=== PATIENT | female | born 1985 | race Caucasian/White ===

== ENCOUNTER 2017-12-21 08:22 | Emergency (ER) | payer OTHER ==
[2017-12-21] MEDS: ACETAMINOPHEN 500 MG TAB PO (08:55)
[2017-12-21 09:29] LABS: ADD UMIC NO; UR ASCORBIC ACID NEGATIVE (NEGATIVE); UR BILIRUBIN (Dip) NEGATIVE (NEGATIVE); UR BLOOD (Dip) NEGATIVE (NEGATIVE); UR CLARITY CLEAR (CLEAR); UR COLOR STRAW (YELLOW); UR GLUCOSE (Dip) NEGATIVE (NEGATIVE); UR KETONES (Dip) NEGATIVE (NEGATIVE); UR LEUKOCYTE ESTERASE (Dip) NEGATIVE Leu/ul (NEGATIVE); UR NITRITE (Dip) NEGATIVE (NEGATIVE); UR SPECIFIC GRAVITY (Dip) 1.014 (1.003-1.030); UR TOTAL PROTEIN (Dip) NEGATIVE (NEGATIVE); UR UROBILINOGEN (Dip) NEGATIVE (NEGATIVE)
[2017-12-21 09:46] LABS: ADD MAN DIFF? NO
[2017-12-21 09:48] LABS: BASOPHILS % 0.6 % (0.0-2.0); EOSINOPHILS # 0.1 10^3/ul (0.0-0.5); EOSINOPHILS % 1.2 % (0.0-7.0); HEMOGLOBIN 10.8 g/dl (12.0-16.0); LYMPHOCYTES # 1.8 10^3/ul (0.8-2.9); LYMPHOCYTES % 26.1 % (15.0-51.0); MEAN CORPUSCULAR HEMOGLOBIN 24.1 pg (29.0-33.0); MEAN CORPUSCULAR HGB CONC 31.8 g/dl (32.0-37.0); MEAN CORPUSCULAR VOLUME 75.7 fl (82.0-101.0); MONOCYTE # 0.5 10^3/ul (0.3-0.9); MONOCYTES % 6.6 % (0.0-11.0); NEUTROPHIL # 4.5 10^3/ul (1.6-7.5); NEUTROPHILS % 65.2 % (39.0-77.0); PLATELET COUNT 302 10^3/UL (140-415); RED BLOOD COUNT 4.49 10^6/ul (4.20-5.40); RED CELL DISTRIBUTION WIDTH 16.3 % (11.5-14.5)
[2017-12-21 09:48] LABS: WHITE BLOOD COUNT 6.9 10^3/ul (4.8-10.8)
[2017-12-21 10:09] LABS: ALANINE AMINOTRANSFERASE 22 IU/L (13-69); ALBUMIN 4.2 g/dl (3.3-4.9); ALBUMIN/GLOBULIN RATIO 1.27; ALKALINE PHOSPHATASE 59 IU/L (42-121); ANION GAP 16 (8-16); ASPARTATE AMINO TRANSFERASE 13 IU/L (15-46); BLOOD UREA NITROGEN 9 mg/dl (7-20); CALCIUM 9.3 mg/dl (8.4-10.2); CARBON DIOXIDE 22 mmol/L (21-31); CHLORIDE 107 mmol/L (97-110); CREATININE 0.71 mg/dl (0.44-1.00); GLUCOSE 82 mg/dl (70-220); LIPASE 152 U/L (23-300); POTASSIUM 4.1 mmol/L (3.5-5.1); SODIUM 141 mmol/L (135-144); TOTAL PROTEIN 7.5 g/dl (6.1-8.1)
[2017-12-21] MEDS: LIDOCAINE/MYLANTA 40 ML BTL PO (10:39)
[2017-12-21] MEDS: IBUPROFEN 800 MG TAB PO (10:39)
[2017-12-21] MEDS: BELLADONNA/PHENOBARBITAL TAB PO ×2 (10:39→10:41)
[2017-12-21] MEDS: KETOROLAC 60 MG INJ IM (10:47)
== END 2017-12-21 10:55 | disposition home or self-care (01) ==
LOC: FTE 08:22
DX: R10.11 Right upper quadrant pain (principal); J45.909 Unspecified asthma, uncomplicated
CPT/HCPCS: 36415; 76705; 80053; 81003; 83690; 84703; 85025; 96372; 99285-25

== ENCOUNTER 2018-02-11 08:28 | Emergency (ER) | payer OTHER ==
[2018-02-11] MEDS: KETOROLAC 60 MG INJ IM (09:14)
[2018-02-11 09:19] LABS: ADD MAN DIFF? NO
[2018-02-11 09:31] LABS: BASOPHILS % 0.5 % (0.0-2.0); EOSINOPHILS % 0.6 % (0.0-7.0); HEMATOCRIT 34.1 % (37.0-47.0); HEMOGLOBIN 10.7 g/dl (12.0-16.0); LYMPHOCYTES # 1.6 10^3/ul (0.8-2.9); MEAN CORPUSCULAR HEMOGLOBIN 23.8 pg (29.0-33.0); MEAN CORPUSCULAR HGB CONC 31.4 g/dl (32.0-37.0); MEAN CORPUSCULAR VOLUME 75.8 fl (82.0-101.0); MONOCYTE # 0.4 10^3/ul (0.3-0.9); MONOCYTES % 6.8 % (0.0-11.0); NEUTROPHIL # 4.3 10^3/ul (1.6-7.5); NEUTROPHILS % 66.8 % (39.0-77.0); PLATELET COUNT 281 10^3/UL (140-415); RED CELL DISTRIBUTION WIDTH 14.6 % (11.5-14.5)
[2018-02-11 09:31] LABS: WHITE BLOOD COUNT 6.4 10^3/ul (4.8-10.8)
[2018-02-11 09:36] LABS: ADD UMIC NO; UR ASCORBIC ACID NEGATIVE (NEGATIVE); UR BILIRUBIN (Dip) NEGATIVE (NEGATIVE); UR BLOOD (Dip) NEGATIVE (NEGATIVE); UR CLARITY CLEAR (CLEAR); UR COLOR STRAW (YELLOW); UR GLUCOSE (Dip) NEGATIVE (NEGATIVE); UR KETONES (Dip) NEGATIVE (NEGATIVE); UR LEUKOCYTE ESTERASE (Dip) NEGATIVE Leu/ul (NEGATIVE); UR NITRITE (Dip) NEGATIVE (NEGATIVE); UR SPECIFIC GRAVITY (Dip) 1.014 (1.003-1.030); UR TOTAL PROTEIN (Dip) NEGATIVE (NEGATIVE); UR UROBILINOGEN (Dip) NEGATIVE (NEGATIVE)
[2018-02-11 09:56] LABS: ALANINE AMINOTRANSFERASE 15 IU/L (13-69); ALBUMIN 4.2 g/dl (3.3-4.9); ALKALINE PHOSPHATASE 70 IU/L (42-121); ANION GAP 13 (8-16); ASPARTATE AMINO TRANSFERASE 12 IU/L (15-46); BILIRUBIN,INDIRECT 0.1 mg/dl (0-1.1); BILIRUBIN,TOTAL 0.1 mg/dl (0.2-1.3); BLOOD UREA NITROGEN 9 mg/dl (7-20); CARBON DIOXIDE 27 mmol/L (21-31); CHLORIDE 105 mmol/L (97-110); CREATININE 0.63 mg/dl (0.44-1.00); GLUCOSE 89 mg/dl (70-220); SODIUM 141 mmol/L (135-144); TOTAL PROTEIN 7.7 g/dl (6.1-8.1)
[2018-02-11 10:06] LABS: TROPONIN-I < 0.012 ng/ml (0.00-0.12)
== END 2018-02-11 10:49 | disposition home or self-care (01) ==
LOC: FTE 08:28
DX: R07.9 Chest pain, unspecified (principal); J45.909 Unspecified asthma, uncomplicated
CPT/HCPCS: 36415; 71045; 80053; 81003; 81025; 84484; 84703; 85025; 93005; 96372; 99285-25

== ENCOUNTER 2018-03-15 16:02 | Emergency (ER) | payer OTHER | END 2018-03-15 16:46 | disposition home or self-care (01) | LOC: E/R 16:02 | DX: J02.9 Acute pharyngitis, unspecified (principal); J45.909 Unspecified asthma, uncomplicated | CPT/HCPCS: 99283; Z7502 ==

== ENCOUNTER 2018-05-02 19:59 | Emergency (ER) | payer OTHER ==
[2018-05-02] MEDS: METHYLPREDNISOLONE 125 MG INJ IV (20:33)
[2018-05-02] MEDS: SOD CHLORIDE 0.9% 1,000 ML IV (20:33)
[2018-05-02] MEDS: FAMOTIDINE 20 MG INJ IV (20:33)
[2018-05-02] MEDS: DIPHENHYDRAMINE 50 MG INJ IM (21:36)
== END 2018-05-02 22:30 | disposition home or self-care (01) ==
LOC: FTE 19:59
DX: L50.9 Urticaria, unspecified (principal); R07.0 Pain in throat; J45.901 Unspecified asthma with (acute) exacerbation; Z91.010 Allergy to peanuts; Z91.040 Latex allergy status
CPT/HCPCS: 96361; 96372; 96374; 96375; 99284-25

== ENCOUNTER 2018-07-12 07:30 | Emergency (ER) | payer OTHER ==
[2018-07-12] MEDS: METHYLPREDNISOLONE 125 MG INJ IV (07:43)
[2018-07-12] MEDS: FAMOTIDINE 20 MG INJ IV (07:43)
[2018-07-12] MEDS: EPINEPHrine 1 MG INJ SC (07:43)
[2018-07-12] MEDS: DIPHENHYDRAMINE 50 MG INJ IV (07:44)
[2018-07-12] MEDS: LEVALBUTEROL (NEB) 1.25 MG/0.5 ML AMP HHN (07:51)
== END 2018-07-12 08:22 | disposition home or self-care (01) ==
LOC: FTE 07:30
DX: L29.9 Pruritus, unspecified (principal); J45.901 Unspecified asthma with (acute) exacerbation; Z91.010 Allergy to peanuts; Z91.040 Latex allergy status
CPT/HCPCS: 94664; 96372; 96374; 96375; 99284-25

== ENCOUNTER 2018-07-12 15:25 | Emergency (ER) | payer OTHER ==
[2018-07-12] MEDS ORDERED: EPINEPHrine 1 MG INJ SC (16:59)
[2018-07-12] MEDS: FAMOTIDINE 20 MG INJ IV (17:09)
[2018-07-12] MEDS: EPINEPHrine 1 MG INJ SC (17:09)
[2018-07-12] MEDS: DIPHENHYDRAMINE 50 MG INJ IV (17:09)
[2018-07-12] MEDS: METHYLPREDNISOLONE 125 MG INJ IV (17:09)
[2018-07-12] MEDS: ALBUTEROL 0.083% (NEB) 2.5 MG/3 ML AMP INH (17:10)
[2018-07-12] MEDS: SOD CHLORIDE 0.9% 1,000 ML IV (17:12)
== END 2018-07-12 19:59 | disposition home or self-care (01) ==
LOC: FTE 15:25
DX: R21 Rash and other nonspecific skin eruption (principal); J45.909 Unspecified asthma, uncomplicated; Z91.010 Allergy to peanuts; Z91.040 Latex allergy status
CPT/HCPCS: 94664; 96372; 96374; 96375; 99284-25

== ENCOUNTER 2018-07-12 22:53 | Inpatient (IN) | payer OTHER ==
[2018-07-12] MEDS ORDERED: EPINEPHrine 1 MG INJ (23:47)
[2018-07-12] MEDS: FAMOTIDINE 20 MG INJ IV (23:50)
[2018-07-12] MEDS: DIPHENHYDRAMINE 50 MG INJ IV (23:50)
[2018-07-12] MEDS: METHYLPREDNISOLONE 125 MG INJ IV (23:51)
[2018-07-13 00:02] LABS: ABNORMAL IP MESSAGE 1; ADD MAN DIFF? NO; BASOPHILS % 0.1 % (0.0-2.0); HEMATOCRIT 31.7 % (37.0-47.0); HEMOGLOBIN 9.8 g/dl (12.0-16.0); LYMPHOCYTES # 0.5 10^3/ul (0.8-2.9); LYMPHOCYTES % 4.9 % (15.0-51.0); MEAN CORPUSCULAR HEMOGLOBIN 23.3 pg (29.0-33.0); MEAN CORPUSCULAR HGB CONC 30.9 g/dl (32.0-37.0); MEAN CORPUSCULAR VOLUME 75.5 fl (82.0-101.0); MEAN PLATELET VOLUME 10.2 fl (7.4-10.4); MONOCYTE # 0.1 10^3/ul (0.3-0.9); MONOCYTES % 0.9 % (0.0-11.0); NEUTROPHIL # 10.2 10^3/ul (1.6-7.5); NEUTROPHILS % 93.6 % (39.0-77.0); PLATELET COUNT 320 10^3/UL (140-415)
[2018-07-13 00:02] LABS: WHITE BLOOD COUNT 10.9 10^3/ul (4.8-10.8)
[2018-07-13 00:08] LABS: POSITIVE DIFF @See below
[2018-07-13] MEDS: EPINEPHRINE IVPB (00:08)
[2018-07-13] MEDS: DEXTROSE 5% IVPB (00:08)
[2018-07-13] MEDS ORDERED: ONDANSETRON 4 MG INJ (00:12)
[2018-07-13] MEDS: ONDANSETRON 4 MG INJ IV (00:13)
[2018-07-13 00:22] LABS: ALANINE AMINOTRANSFERASE 14 IU/L (13-69); ALBUMIN 3.6 g/dl (3.3-4.9); ALBUMIN/GLOBULIN RATIO 1.02; ALKALINE PHOSPHATASE 56 IU/L (42-121); ANION GAP 12 (8-16); ASPARTATE AMINO TRANSFERASE 16 IU/L (15-46); BILIRUBIN,INDIRECT 0.1 mg/dl (0-1.1); BILIRUBIN,TOTAL 0.1 mg/dl (0.2-1.3); BLOOD UREA NITROGEN 7 mg/dl (7-20); CALCIUM 9.4 mg/dl (8.4-10.2); CARBON DIOXIDE 20 mmol/L (21-31); CHLORIDE 112 mmol/L (97-110); CREATININE 0.49 mg/dl (0.44-1.00); GLUCOSE 205 mg/dl (70-220); POTASSIUM 4.2 mmol/L (3.5-5.1); SODIUM 140 mmol/L (135-144); TOTAL PROTEIN 7.1 g/dl (6.1-8.1)
[2018-07-13 00:23] LABS: INR 0.99; PARTIAL THROMBOPLASTIN TIME 21.7 Sec (23.0-35.0); PROTIME 13.2 Sec (11.9-14.9)
[2018-07-13] MEDS ORDERED: ACETAMINOPHEN 325 MG TAB PO (04:00)
[2018-07-13 06:01] LABS: ADD MAN DIFF? NO
[2018-07-13] MEDS: METHYLPREDNISOLONE 40 MG INJ IV ×4 (06:01→22:21)
[2018-07-13] MEDS: LORATADINE 10 MG TAB PO (06:04)
[2018-07-13 06:10] LABS: ABNORMAL IP MESSAGE 1; BASOPHILS % 0.1 % (0.0-2.0); HEMATOCRIT 30.9 % (37.0-47.0); HEMOGLOBIN 9.5 g/dl (12.0-16.0); LYMPHOCYTES # 0.9 10^3/ul (0.8-2.9); LYMPHOCYTES % 4.1 % (15.0-51.0); MEAN CORPUSCULAR HEMOGLOBIN 23.8 pg (29.0-33.0); MEAN CORPUSCULAR HGB CONC 30.7 g/dl (32.0-37.0); MEAN CORPUSCULAR VOLUME 77.4 fl (82.0-101.0); MEAN PLATELET VOLUME 10.1 fl (7.4-10.4); MONOCYTE # 0.3 10^3/ul (0.3-0.9); MONOCYTES % 1.3 % (0.0-11.0); NEUTROPHIL # 21.4 10^3/ul (1.6-7.5); NEUTROPHILS % 93.6 % (39.0-77.0); PLATELET COUNT 312 10^3/UL (140-415); RED BLOOD COUNT 3.99 10^6/ul (4.20-5.40); RED CELL DISTRIBUTION WIDTH 15.3 % (11.5-14.5)
[2018-07-13 06:10] LABS: WHITE BLOOD COUNT 22.9 10^3/ul (4.8-10.8)
[2018-07-13 06:15] LABS: POSITIVE DIFF @See below
[2018-07-13] MEDS: DIPHENHYDRAMINE 50 MG INJ IV ×4 (06:42→23:58)
[2018-07-13 07:15] LABS: ANION GAP 12 (8-16); BLOOD UREA NITROGEN 9 mg/dl (7-20); CALCIUM 8.5 mg/dl (8.4-10.2); CARBON DIOXIDE 20 mmol/L (21-31); CHLORIDE 114 mmol/L (97-110); CREATININE 0.47 mg/dl (0.44-1.00); GLUCOSE 180 mg/dl (70-220); POTASSIUM 4.2 mmol/L (3.5-5.1); SODIUM 142 mmol/L (135-144)
[2018-07-13] MEDS: ENOXAPARIN 40 MG/0.4 ML SYG SC (08:52)
[2018-07-13] MEDS ORDERED: LORATADINE 10 MG TAB PO (09:00)
[2018-07-13] MEDS: ALBUTEROL/IPRATROPIUM (NEB) 3 ML AMP HHN ×3 (13:52→20:23)
[2018-07-13 15:14] LABS: RHEUMATOID FACTOR NEGATIVE (NEGATIVE)
[2018-07-13] MEDS ORDERED: DIPHENHYDRAMINE 50 MG INJ (23:51)
[2018-07-14] MEDS ORDERED: METHYLPREDNISOLONE 40 MG INJ IV
[2018-07-14] MEDS: METHYLPREDNISOLONE 125 MG INJ IV ×4 (01:09→18:11)
[2018-07-14] MEDS: FAMOTIDINE 20 MG INJ IV ×3 (01:10→21:00)
[2018-07-14 08:09] LABS: ADD MAN DIFF? NO
[2018-07-14] MEDS: ALBUTEROL/IPRATROPIUM (NEB) 3 ML AMP HHN ×3 (08:23→19:48)
[2018-07-14 08:27] LABS: WHITE BLOOD COUNT 17.8 10^3/ul (4.8-10.8)
[2018-07-14 08:27] LABS: BASOPHILS % 0.1 % (0.0-2.0); HEMATOCRIT 30.6 % (37.0-47.0); HEMOGLOBIN 9.5 g/dl (12.0-16.0); LYMPHOCYTES % 5.6 % (15.0-51.0); MEAN CORPUSCULAR HEMOGLOBIN 23.8 pg (29.0-33.0); MEAN CORPUSCULAR VOLUME 76.7 fl (82.0-101.0); MEAN PLATELET VOLUME 10.8 fl (7.4-10.4); MONOCYTE # 0.2 10^3/ul (0.3-0.9); MONOCYTES % 1.2 % (0.0-11.0); NEUTROPHIL # 16.5 10^3/ul (1.6-7.5); NEUTROPHILS % 92.4 % (39.0-77.0); PLATELET COUNT 305 10^3/UL (140-415); RED BLOOD COUNT 3.99 10^6/ul (4.20-5.40); RED CELL DISTRIBUTION WIDTH 15.5 % (11.5-14.5)
[2018-07-14 08:36] LABS: ANION GAP 11 (8-16); BLOOD UREA NITROGEN 11 mg/dl (7-20); CARBON DIOXIDE 24 mmol/L (21-31); CHLORIDE 109 mmol/L (97-110); CREATININE 0.45 mg/dl (0.44-1.00); GLUCOSE 176 mg/dl (70-220); POTASSIUM 4.1 mmol/L (3.5-5.1); SODIUM 140 mmol/L (135-144)
[2018-07-14] MEDS ORDERED: FAMOTIDINE 20 MG INJ IV (09:00)
[2018-07-14] MEDS: LORATADINE 10 MG TAB PO (09:24)
[2018-07-14] MEDS: ENOXAPARIN 40 MG/0.4 ML SYG SC (09:36)
[2018-07-14] MEDS: DIPHENHYDRAMINE 50 MG INJ IV ×3 (10:48→22:26)
[2018-07-14] MEDS: ALBUTEROL HFA 8 GM INHALER INH ×2 (12:18→18:02)
[2018-07-15] MEDS: DIPHENHYDRAMINE 50 MG INJ IV ×6 (04:15→19:27)
[2018-07-15] MEDS: METHYLPREDNISOLONE 125 MG INJ IV ×4 (06:20→17:54)
[2018-07-15] MEDS: ALBUTEROL/IPRATROPIUM (NEB) 3 ML AMP HHN ×4 (07:38→20:00)
[2018-07-15] MEDS: FAMOTIDINE 20 MG INJ IV ×2 (08:22→20:10)
[2018-07-15] MEDS: LORATADINE 10 MG TAB PO (08:22)
[2018-07-15] MEDS: ENOXAPARIN 40 MG/0.4 ML SYG SC (09:53)
[2018-07-15] MEDS: LORAZEPAM 0.5 MG TAB PO (15:55)
[2018-07-15 19:52] LABS: ANA SCREEN POSITIVE (NEGATIVE); COMPLEMENT, TOTAL (CH50) 44 U/mL (31-60)
[2018-07-16] MEDS: DIPHENHYDRAMINE 50 MG INJ IV ×6 (00:05→21:33)
[2018-07-16] MEDS: METHYLPREDNISOLONE 125 MG INJ IV ×4 (05:24→21:33)
[2018-07-16 07:46] LABS: IMMUNOGLOBULIN E 11 kU/L (<OR=114)
[2018-07-16] MEDS: ALBUTEROL/IPRATROPIUM (NEB) 3 ML AMP HHN ×3 (08:47→19:48)
[2018-07-16] MEDS: FAMOTIDINE 20 MG INJ IV ×2 (09:20→21:33)
[2018-07-16] MEDS: LORATADINE 10 MG TAB PO (09:20)
[2018-07-16] MEDS: ENOXAPARIN 40 MG/0.4 ML SYG SC (09:39)
[2018-07-16 14:36] LABS: ANA PATTERN HOMOGENEOUS
[2018-07-16 20:25] LABS: COMPLEMENT C3 122 mg/dl (88-165); COMPLEMENT C4 27 mg/dl (14-44)
[2018-07-17] MEDS: DIPHENHYDRAMINE 50 MG INJ IV ×6 (01:45→23:34)
[2018-07-17] MEDS: METHYLPREDNISOLONE 125 MG INJ IV ×3 (05:41→21:14)
[2018-07-17] MEDS: FAMOTIDINE 20 MG INJ IV ×2 (08:15→21:15)
[2018-07-17] MEDS: LORATADINE 10 MG TAB PO (08:15)
[2018-07-17] MEDS: ALBUTEROL/IPRATROPIUM (NEB) 3 ML AMP HHN ×4 (08:22→20:00)
[2018-07-17] MEDS: ENOXAPARIN 40 MG/0.4 ML SYG SC (10:30)
[2018-07-17] MEDS: DOCUSATE SODIUM 100 MG CAP PO ×2 (17:56→21:16)
[2018-07-18] MEDS: DIPHENHYDRAMINE 50 MG INJ IV ×5 (05:37→22:44)
[2018-07-18 05:39] LABS: ADD MAN DIFF? NO
[2018-07-18] MEDS: METHYLPREDNISOLONE 125 MG INJ IV ×3 (05:39→21:44)
[2018-07-18 05:44] LABS: WHITE BLOOD COUNT 15.5 10^3/ul (4.8-10.8)
[2018-07-18 05:44] LABS: BASOPHILS % 0.2 % (0.0-2.0); HEMATOCRIT 34.3 % (37.0-47.0); HEMOGLOBIN 10.8 g/dl (12.0-16.0); LYMPHOCYTES # 1.5 10^3/ul (0.8-2.9); LYMPHOCYTES % 9.9 % (15.0-51.0); MEAN CORPUSCULAR HEMOGLOBIN 23.5 pg (29.0-33.0); MEAN CORPUSCULAR HGB CONC 31.5 g/dl (32.0-37.0); MEAN CORPUSCULAR VOLUME 74.6 fl (82.0-101.0); MEAN PLATELET VOLUME 10.3 fl (7.4-10.4); MONOCYTE # 0.7 10^3/ul (0.3-0.9); MONOCYTES % 4.8 % (0.0-11.0); NEUTROPHIL # 12.9 10^3/ul (1.6-7.5); PLATELET COUNT 325 10^3/UL (140-415)
[2018-07-18 06:33] LABS: ANION GAP 10 (8-16); BLOOD UREA NITROGEN 15 mg/dl (7-20); CALCIUM 8.4 mg/dl (8.4-10.2); CARBON DIOXIDE 27 mmol/L (21-31); CHLORIDE 106 mmol/L (97-110); CREATININE 0.45 mg/dl (0.44-1.00); GLUCOSE 140 mg/dl (70-220); SODIUM 139 mmol/L (135-144)
[2018-07-18] MEDS: ALBUTEROL/IPRATROPIUM (NEB) 3 ML AMP HHN ×3 (08:00→19:43)
[2018-07-18] MEDS: FAMOTIDINE 20 MG INJ IV ×2 (08:33→21:44)
[2018-07-18] MEDS: LORATADINE 10 MG TAB PO (08:33)
[2018-07-18] MEDS: DOCUSATE SODIUM 100 MG CAP PO ×2 (08:33→21:44)
[2018-07-18] MEDS: ENOXAPARIN 40 MG/0.4 ML SYG SC (08:34)
[2018-07-19] MEDS: DIPHENHYDRAMINE 50 MG INJ IV ×3 (04:58→14:38)
[2018-07-19] MEDS: METHYLPREDNISOLONE 125 MG INJ IV ×2 (06:34→14:19)
[2018-07-19 06:54] LABS: ADD MAN DIFF? NO
[2018-07-19 07:04] LABS: WHITE BLOOD COUNT 16.7 10^3/ul (4.8-10.8)
[2018-07-19 07:04] LABS: BASOPHILS % 0.2 % (0.0-2.0); HEMATOCRIT 35.5 % (37.0-47.0); HEMOGLOBIN 11.1 g/dl (12.0-16.0); LYMPHOCYTES # 1.8 10^3/ul (0.8-2.9); LYMPHOCYTES % 10.7 % (15.0-51.0); MEAN CORPUSCULAR HEMOGLOBIN 23.4 pg (29.0-33.0); MEAN CORPUSCULAR HGB CONC 31.3 g/dl (32.0-37.0); MEAN CORPUSCULAR VOLUME 74.7 fl (82.0-101.0); MEAN PLATELET VOLUME 10.4 fl (7.4-10.4); MONOCYTE # 0.7 10^3/ul (0.3-0.9); MONOCYTES % 4.1 % (0.0-11.0); NEUTROPHIL # 13.6 10^3/ul (1.6-7.5); NEUTROPHILS % 81.6 % (39.0-77.0); PLATELET COUNT 324 10^3/UL (140-415); RED BLOOD COUNT 4.75 10^6/ul (4.20-5.40); RED CELL DISTRIBUTION WIDTH 14.8 % (11.5-14.5)
[2018-07-19 07:35] LABS: ANION GAP 9 (8-16); BLOOD UREA NITROGEN 15 mg/dl (7-20); CALCIUM 8.2 mg/dl (8.4-10.2); CARBON DIOXIDE 28 mmol/L (21-31); CHLORIDE 105 mmol/L (97-110); CREATININE 0.45 mg/dl (0.44-1.00); GLUCOSE 121 mg/dl (70-220); POTASSIUM 4.1 mmol/L (3.5-5.1); SODIUM 138 mmol/L (135-144)
[2018-07-19] MEDS: ALBUTEROL/IPRATROPIUM (NEB) 3 ML AMP HHN ×2 (07:53→16:05)
[2018-07-19] MEDS: LORATADINE 10 MG TAB PO (09:20)
[2018-07-19] MEDS: DOCUSATE SODIUM 100 MG CAP PO (09:20)
[2018-07-19] MEDS: FAMOTIDINE 20 MG INJ IV (09:24)
[2018-07-19] MEDS: ENOXAPARIN 40 MG/0.4 ML SYG SC (09:44)
== END 2018-07-19 17:30 | disposition still patient (30) | DRG 916 ==
LOC: E/R 22:53 → 2NE 07-14 22:32 → TEL 07-13 01:00
DX: T78.40XA Allergy, unspecified, initial encounter (principal); L53.8 Other specified erythematous conditions; X58.XXXA Exposure to other specified factors, initial encounter; J45.909 Unspecified asthma, uncomplicated
CPT/HCPCS: 71045; 80048; 80053; 82785; 84703; 85025; 85610; 85730; 86038; 86160; 86162; 86430; 94640; 94664; 96374; 96375; 99285-25

== ENCOUNTER 2018-08-21 19:04 | Emergency (ER) | payer OTHER ==
[2018-08-21 20:20] LABS: URINE BLOOD (Dip) POC Negative (NEGATIVE); URINE GLUCOSE (Dip) POC Negative (NEGATIVE); URINE KETONES (Dip) POC Negative (NEGATIVE); URINE LEUKOCYTE EST (Dip) POC Negative (NEGATIVE); URINE NITRITE (Dip) POC Negative (NEGATIVE); URINE TOTAL PROTEIN POC Negative (NEGATIVE)
[2018-08-21 20:20] LABS: URINE PH (Dip) POC 6.5 (5.0-8.5)
[2018-08-21] MEDS: FAMOTIDINE 20 MG INJ IV (20:22)
[2018-08-21] MEDS: ONDANSETRON 4 MG INJ IV (20:22)
[2018-08-21] MEDS: morphine 4 MG/ML VIAL IV (20:22)
[2018-08-21] MEDS: SOD CHLORIDE 0.9% 1,000 ML IV (20:23)
[2018-08-21 20:33] LABS: ADD MAN DIFF? NO
[2018-08-21 20:35] LABS: BASOPHIL # 0.1 10^3/ul (0.0-0.1); BASOPHILS % 0.6 % (0.0-2.0); EOSINOPHILS % 0.5 % (0.0-7.0); HEMATOCRIT 34.4 % (37.0-47.0); HEMOGLOBIN 11.1 g/dl (12.0-16.0); LYMPHOCYTES # 2.1 10^3/ul (0.8-2.9); LYMPHOCYTES % 26.3 % (15.0-51.0); MEAN CORPUSCULAR HEMOGLOBIN 24.2 pg (29.0-33.0); MEAN CORPUSCULAR HGB CONC 32.3 g/dl (32.0-37.0); MEAN CORPUSCULAR VOLUME 75.1 fl (82.0-101.0); MEAN PLATELET VOLUME 9.9 fl (7.4-10.4); MONOCYTE # 0.8 10^3/ul (0.3-0.9); MONOCYTES % 10.5 % (0.0-11.0); NEUTROPHIL # 4.9 10^3/ul (1.6-7.5); NEUTROPHILS % 61.6 % (39.0-77.0); PLATELET COUNT 290 10^3/UL (140-415); RED BLOOD COUNT 4.58 10^6/ul (4.20-5.40); RED CELL DISTRIBUTION WIDTH 15.9 % (11.5-14.5)
[2018-08-21 20:45] LABS: ADD UMIC NO; UR ASCORBIC ACID 40 mg/dL (NEGATIVE); UR BILIRUBIN (Dip) NEGATIVE (NEGATIVE); UR BLOOD (Dip) NEGATIVE (NEGATIVE); UR CLARITY SLIGHTLY CLOUDY (CLEAR); UR COLOR YELLOW (YELLOW); UR GLUCOSE (Dip) NEGATIVE (NEGATIVE); UR KETONES (Dip) NEGATIVE (NEGATIVE); UR LEUKOCYTE ESTERASE (Dip) NEGATIVE Leu/ul (NEGATIVE); UR MUCUS FEW /HPF (NONE SEEN); UR NITRITE (Dip) NEGATIVE (NEGATIVE); UR RBC 1 /HPF (0-5); UR SPECIFIC GRAVITY (Dip) 1.016 (1.003-1.030); UR SQUAMOUS EPITHELIAL CELL FEW /HPF (FEW); UR TOTAL PROTEIN (Dip) NEGATIVE (NEGATIVE); UR UROBILINOGEN (Dip) NEGATIVE (NEGATIVE); UR WBC 1 /HPF (0-5)
[2018-08-21 20:52] LABS: ALANINE AMINOTRANSFERASE 21 IU/L (13-69); ALBUMIN 4.4 g/dl (3.3-4.9); ALBUMIN/GLOBULIN RATIO 1.69; ALKALINE PHOSPHATASE 81 IU/L (42-121); ANION GAP 11 (5-13); ASPARTATE AMINO TRANSFERASE 16 IU/L (15-46); BLOOD UREA NITROGEN 13 mg/dl (7-20); CALCIUM 9.7 mg/dl (8.4-10.2); CARBON DIOXIDE 24 mmol/L (21-31); CHLORIDE 106 mmol/L (97-110); CREATININE 0.85 mg/dl (0.44-1.00); Estimated GFR > 60 mL/min (>60); GLUCOSE 91 mg/dl (70-220); LIPASE 273 U/L (23-300); POTASSIUM 4.4 mmol/L (3.5-5.1); SODIUM 141 mmol/L (135-144)
[2018-08-21] MEDS: KETOROLAC 30 MG INJ IV (21:21)
[2018-08-21] MEDS: DIPHENHYDRAMINE 25 MG CAP PO (21:50)
[2018-08-21] MEDS: METOCLOPRAMIDE 10 MG INJ IV (21:55)
== END 2018-08-21 23:06 | disposition home or self-care (01) ==
LOC: FTE 19:04
DX: R10.11 Right upper quadrant pain (principal); J45.909 Unspecified asthma, uncomplicated; Z91.040 Latex allergy status
CPT/HCPCS: 36415; 76705; 80053; 81001; 81003; 81025; 83690; 85025; 96374; 96375; 99285-25

== ENCOUNTER 2018-10-14 17:14 | Emergency (ER) | payer OTHER ==
[2018-10-14] MEDS: FAMOTIDINE 20 MG INJ IV (17:50)
[2018-10-14] MEDS: DIPHENHYDRAMINE 50 MG INJ IV (17:50)
[2018-10-14] MEDS: METHYLPREDNISOLONE 125 MG INJ IV (17:50)
[2018-10-14] MEDS: SOD CHLORIDE 0.9% 1,000 ML IV (17:50)
[2018-10-14] MEDS: predniSONE 20 MG TAB PO (19:44)
== END 2018-10-14 20:26 | disposition home or self-care (01) ==
LOC: FTE 17:14
DX: R06.02 Shortness of breath (principal); L29.9 Pruritus, unspecified; R21 Rash and other nonspecific skin eruption; J45.901 Unspecified asthma with (acute) exacerbation; Z91.010 Allergy to peanuts; Z91.040 Latex allergy status
CPT/HCPCS: 96374; 96375; 99284-25

== ENCOUNTER 2018-10-29 20:23 | Observation (INO) | payer OTHER ==
[2018-10-29] MEDS: EPINEPHrine 1 MG INJ IM ×2 (20:41→21:00)
[2018-10-29] MEDS: METHYLPREDNISOLONE 125 MG INJ IV (20:42)
[2018-10-29] MEDS: DIPHENHYDRAMINE 50 MG INJ IV ×2 (20:42→23:43)
[2018-10-29] MEDS: FAMOTIDINE 20 MG INJ IV (20:44)
[2018-10-29] MEDS: ALBUTEROL 0.083% (NEB) 2.5 MG/3 ML AMP INH (20:50)
[2018-10-29] MEDS: IPRATROPIUM (NEB) 0.5 MG/2.5 ML AMP INH (20:50)
[2018-10-29 20:52] LABS: ADD MAN DIFF? NO
[2018-10-29] MEDS: SOD CHLORIDE 0.9% 500 ML IV (20:57)
[2018-10-29 20:59] LABS: BASOPHILS % 0.4 % (0.0-2.0); EOSINOPHILS # 0.2 10^3/ul (0.0-0.5); EOSINOPHILS % 1.6 % (0.0-7.0); HEMATOCRIT 34.7 % (37.0-47.0); HEMOGLOBIN 10.8 g/dl (12.0-16.0); LYMPHOCYTES # 3.3 10^3/ul (0.8-2.9); LYMPHOCYTES % 32.4 % (15.0-51.0); MEAN CORPUSCULAR HEMOGLOBIN 23.7 pg (29.0-33.0); MEAN CORPUSCULAR HGB CONC 31.1 g/dl (32.0-37.0); MEAN CORPUSCULAR VOLUME 76.1 fl (82.0-101.0); MEAN PLATELET VOLUME 10.3 fl (7.4-10.4); MONOCYTE # 0.8 10^3/ul (0.3-0.9); MONOCYTES % 7.7 % (0.0-11.0); NEUTROPHIL # 5.8 10^3/ul (1.6-7.5); NEUTROPHILS % 57.7 % (39.0-77.0); PLATELET COUNT 348 10^3/UL (140-415); RED BLOOD COUNT 4.56 10^6/ul (4.20-5.40); RED CELL DISTRIBUTION WIDTH 16.4 % (11.5-14.5)
[2018-10-29 20:59] LABS: WHITE BLOOD COUNT 10.1 10^3/ul (4.8-10.8)
[2018-10-29] MEDS: RACEPINEPHRINE 2.25%(NEB) 0.5 ML AMP HHN (21:02)
[2018-10-29 21:14] LABS: POTASSIUM 3.9 mmol/L (3.5-5.1); SODIUM 141 mmol/L (135-144)
[2018-10-29 21:15] LABS: ANION GAP 13 (5-13); BLOOD UREA NITROGEN 12 mg/dl (7-20); CALCIUM 9.7 mg/dl (8.4-10.2); CARBON DIOXIDE 25 mmol/L (21-31); CHLORIDE 103 mmol/L (97-110); CREATININE 0.68 mg/dl (0.44-1.00); Estimated GFR > 60 mL/min (>60); GLUCOSE 108 mg/dl (70-220)
[2018-10-29] MEDS ORDERED: ACETAMINOPHEN 325 MG TAB PO (21:30)
[2018-10-29] MEDS ORDERED: ONDANSETRON 4 MG INJ IV (21:30)
[2018-10-29] MEDS ORDERED: ALBUTEROL/IPRATROPIUM (NEB) 3 ML AMP HHN (22:00)
[2018-10-29] MEDS ORDERED: DIPHENHYDRAMINE 50 MG INJ IV (22:00)
[2018-10-30] MEDS ORDERED: DIPHENHYDRAMINE 50 MG INJ IV
[2018-10-30] MEDS: FAMOTIDINE 20 MG INJ IV ×2 (05:24→08:17)
[2018-10-30] MEDS: METHYLPREDNISOLONE 40 MG INJ IV (05:25)
[2018-10-30] MEDS: FLUTICASONE/VILANTEROL 100-25 INH (08:17)
== END 2018-10-30 13:30 | disposition home or self-care (01) ==
LOC: E/R 20:23 → TEL 21:24
DX: T78.2XXA Anaphylactic shock, unspecified, initial encounter (principal); J45.909 Unspecified asthma, uncomplicated; G43.909 Migraine, unspecified, not intractable, without status migrainosus
CPT/HCPCS: 80048; 85025; 87081; 94640; 94664; 96372; 96374; 96375; 99217; 99291-25; G0378

== ENCOUNTER 2018-11-12 11:29 | Inpatient (IN) | payer OTHER ==
[2018-11-12] MEDS: SOD CHLORIDE 0.9% 1,000 ML IV (11:48)
[2018-11-12] MEDS: MAGNESIUM SULFATE 2 GM/50 ML 50 ML IVPB (11:48)
[2018-11-12] MEDS: IPRATROPIUM (NEB) 0.5 MG/2.5 ML AMP INH (11:48)
[2018-11-12] MEDS: FAMOTIDINE 20 MG INJ IV ×2 (11:48→21:12)
[2018-11-12] MEDS: METHYLPREDNISOLONE 125 MG INJ IV (11:48)
[2018-11-12] MEDS: ALBUTEROL 0.5% (NEB) 2.5 MG/0.5 ML AMP INH (11:49)
[2018-11-12 12:06] LABS: ADD MAN DIFF? NO
[2018-11-12 12:11] LABS: ABNORMAL IP MESSAGE 1; BASOPHIL # 0.1 10^3/ul (0.0-0.1); BASOPHILS % 0.4 % (0.0-2.0); EOSINOPHILS # 0.1 10^3/ul (0.0-0.5); EOSINOPHILS % 0.9 % (0.0-7.0); HEMATOCRIT 34.8 % (37.0-47.0); HEMOGLOBIN 10.9 g/dl (12.0-16.0); LYMPHOCYTES # 5.5 10^3/ul (0.8-2.9); LYMPHOCYTES % 45.3 % (15.0-51.0); MEAN CORPUSCULAR HEMOGLOBIN 23.9 pg (29.0-33.0); MEAN CORPUSCULAR HGB CONC 31.3 g/dl (32.0-37.0); MEAN CORPUSCULAR VOLUME 76.3 fl (82.0-101.0); MEAN PLATELET VOLUME 10.4 fl (7.4-10.4); MONOCYTES % 8.2 % (0.0-11.0); NEUTROPHIL # 5.4 10^3/ul (1.6-7.5); NEUTROPHILS % 44.8 % (39.0-77.0); PLATELET COUNT 365 10^3/UL (140-415); RED BLOOD COUNT 4.56 10^6/ul (4.20-5.40); RED CELL DISTRIBUTION WIDTH 15.9 % (11.5-14.5)
[2018-11-12 12:11] LABS: WHITE BLOOD COUNT 12.2 10^3/ul (4.8-10.8)
[2018-11-12 12:13] LABS: POSITIVE DIFF @See below
[2018-11-12 12:27] LABS: ANION GAP 12 (5-13); BLOOD UREA NITROGEN 11 mg/dl (7-20); CALCIUM 9.4 mg/dl (8.4-10.2); CARBON DIOXIDE 23 mmol/L (21-31); CHLORIDE 104 mmol/L (97-110); CREATININE 0.54 mg/dl (0.44-1.00); Estimated GFR > 60 mL/min (>60); GLUCOSE 168 mg/dl (70-220); POTASSIUM 3.2 mmol/L (3.5-5.1); SODIUM 139 mmol/L (135-144)
[2018-11-12] MEDS: DIPHENHYDRAMINE 50 MG INJ IV ×2 (13:30→18:38)
[2018-11-12] MEDS ORDERED: NACL 0.9% 3 ML SYG IV (15:30)
[2018-11-12] MEDS: FLUTICASONE/VILANTEROL 200-25 INH DEVICE INH (19:04)
[2018-11-12] MEDS: ALBUTEROL 0.083% (NEB) 2.5 MG/3 ML AMP HHN (19:35)
[2018-11-12] MEDS: CEPASTAT LOZENGE MT (19:48)
[2018-11-12] MEDS: EPINEPHrine 1 MG INJ IM (20:06)
[2018-11-12] MEDS ORDERED: ALBUTEROL 0.083% (NEB) 2.5 MG/3 ML AMP HHN (20:42)
[2018-11-12] MEDS: DEXAMETHASONE 10 MG/ML 1 ML INJ IV (21:12)
[2018-11-12] MEDS: RACEPINEPHRINE 2.25%(NEB) 0.5 ML AMP HHN (21:23)
[2018-11-12] MEDS: POTASSIUM CHLORIDE 40 MEQ in SOD CHLORIDE 0.9% 1,000 ML IV (22:32)
[2018-11-13] MEDS: DIPHENHYDRAMINE 50 MG INJ IV
[2018-11-13] MEDS: ALBUTEROL 0.083% (NEB) 2.5 MG/3 ML AMP HHN (02:10)
[2018-11-13] MEDS: POTASSIUM CHLORIDE (SR) 20 MEQ TAB PO (08:28)
[2018-11-13] MEDS: FLUTICASONE/VILANTEROL 200-25 INH DEVICE INH (08:30)
== END 2018-11-13 14:38 | disposition home or self-care (01) | DRG 916 ==
LOC: 6WM 11-13 03:38 → E/R 11:29 → 6WM 12:44
DX: T78.01XA Anaphylactic reaction due to peanuts, initial encounter (principal); J45.909 Unspecified asthma, uncomplicated
CPT/HCPCS: 71045; 80048; 85025; 93005; 94640; 94644; 94660; 94664; 96374; 96375; 99291-25

== ENCOUNTER 2018-12-13 18:07 | Emergency (ER) | payer OTHER ==
[2018-12-13] MEDS: DIPHENHYDRAMINE 25 MG CAP PO (21:50)
== END 2018-12-13 22:10 | disposition home or self-care (01) ==
LOC: FTE 18:07
DX: R21 Rash and other nonspecific skin eruption (principal); J45.909 Unspecified asthma, uncomplicated; Z91.040 Latex allergy status; Z91.010 Allergy to peanuts
CPT/HCPCS: 99282; Z7502

== ENCOUNTER 2019-03-15 19:28 | Emergency (ER) | payer OTHER ==
[2019-03-15] MEDS: ONDANSETRON (ODT) 4 MG TAB ODT (22:18)
[2019-03-15] MEDS: HYDROCODONE/APAP (5/325) TAB PO (22:18)
== END 2019-03-16 00:29 | disposition home or self-care (01) ==
LOC: FTE 03-16 00:29
DX: M25.561 Pain in right knee (principal); J45.909 Unspecified asthma, uncomplicated; Z91.010 Allergy to peanuts; Z91.040 Latex allergy status
CPT/HCPCS: 73562; 73610-RT; 99283-25

== ENCOUNTER 2019-05-11 21:40 | Emergency (ER) | payer OTHER ==
[2019-05-11] MEDS: SOD CHLORIDE 0.9% 1,000 ML IV (21:52)
[2019-05-11] MEDS: LORAZEPAM 2 MG INJ IV (21:54)
[2019-05-11 21:56] LABS: ADD MAN DIFF? NO
[2019-05-11 21:59] LABS: WHITE BLOOD COUNT 7.6 10^3/ul (4.8-10.8)
[2019-05-11 21:59] LABS: BASOPHIL # 0.1 10^3/ul (0.0-0.1); BASOPHILS % 0.7 % (0.0-2.0); EOSINOPHILS # 0.1 10^3/ul (0.0-0.5); EOSINOPHILS % 1.7 % (0.0-7.0); HEMATOCRIT 37.3 % (37.0-47.0); HEMOGLOBIN 12.3 g/dl (12.0-16.0); LYMPHOCYTES # 2.6 10^3/ul (0.8-2.9); LYMPHOCYTES % 34.9 % (15.0-51.0); MEAN CORPUSCULAR HEMOGLOBIN 27.3 pg (29.0-33.0); MEAN CORPUSCULAR VOLUME 82.7 fl (82.0-101.0); MEAN PLATELET VOLUME 9.8 fl (7.4-10.4); MONOCYTE # 0.6 10^3/ul (0.3-0.9); MONOCYTES % 7.8 % (0.0-11.0); NEUTROPHIL # 4.1 10^3/ul (1.6-7.5); NEUTROPHILS % 54.6 % (39.0-77.0); PLATELET COUNT 279 10^3/UL (140-415); RED BLOOD COUNT 4.51 10^6/ul (4.20-5.40); RED CELL DISTRIBUTION WIDTH 13.5 % (11.5-14.5)
[2019-05-11] MEDS: LEVETIRACETAM 1000 MG (PMX) 100 ML IVPB (22:00)
[2019-05-11 22:18] LABS: INR 0.93; PROTIME 12.6 Sec (11.9-14.9)
[2019-05-11 22:19] LABS: PARTIAL THROMBOPLASTIN TIME 29.9 Sec (23.0-35.0)
[2019-05-11 22:20] LABS: ALANINE AMINOTRANSFERASE 14 IU/L (13-69); ALBUMIN 4.2 g/dl (3.3-4.9); ALBUMIN/GLOBULIN RATIO 1.27; ALKALINE PHOSPHATASE 67 IU/L (42-121); ANION GAP 9 (5-13); ASPARTATE AMINO TRANSFERASE 18 IU/L (15-46); BILIRUBIN,INDIRECT 0.3 mg/dl (0-1.1); BILIRUBIN,TOTAL 0.3 mg/dl (0.2-1.3); BLOOD UREA NITROGEN 14 mg/dl (7-20); CALCIUM 9.4 mg/dl (8.4-10.2); CARBON DIOXIDE 24 mmol/L (21-31); CHLORIDE 106 mmol/L (97-110); CREATININE 0.57 mg/dl (0.44-1.00); Estimated GFR > 60 mL/min (>60); GLUCOSE 103 mg/dl (70-220); POTASSIUM 4.1 mmol/L (3.5-5.1); SODIUM 139 mmol/L (135-144); TOTAL PROTEIN 7.5 g/dl (6.1-8.1)
[2019-05-12] MEDS: ACETAMINOPHEN 325 MG TAB PO (00:11)
== END 2019-05-12 00:13 | disposition home or self-care (01) ==
LOC: E/R 05-12 00:13
DX: R56.9 Unspecified convulsions (principal); R40.2142 Coma scale, eyes open, spontaneous, at arrival to emergency department; R40.2362 Coma scale, best motor response, obeys commands, at arrival to emergency department; R40.2252 Coma scale, best verbal response, oriented, at arrival to emergency department; J45.909 Unspecified asthma, uncomplicated; Z91.040 Latex allergy status; Z91.010 Allergy to peanuts
CPT/HCPCS: 36415; 70450; 80053; 82962; 84703; 85025; 85610; 85730; 96374; 96375; 99285-25

== ENCOUNTER 2019-05-28 18:17 | Emergency (ER) | payer OTHER ==
[2019-05-28] MEDS: LEVETIRACETAM 500 MG (PMX) 100 ML IVPB (21:17)
[2019-05-28] MEDS: ONDANSETRON 4 MG INJ IV (21:21)
[2019-05-28] MEDS: KETOROLAC 15 MG INJ IV (21:22)
[2019-05-28 22:08] LABS: ADD MAN DIFF? NO
[2019-05-28 22:11] LABS: BASOPHILS % 0.6 % (0.0-2.0); EOSINOPHILS # 0.1 10^3/ul (0.0-0.5); EOSINOPHILS % 1.1 % (0.0-7.0); HEMATOCRIT 37.7 % (37.0-47.0); HEMOGLOBIN 12.2 g/dl (12.0-16.0); LYMPHOCYTES # 2.3 10^3/ul (0.8-2.9); LYMPHOCYTES % 32.8 % (15.0-51.0); MEAN CORPUSCULAR HEMOGLOBIN 27.4 pg (29.0-33.0); MEAN CORPUSCULAR HGB CONC 32.4 g/dl (32.0-37.0); MEAN CORPUSCULAR VOLUME 84.5 fl (82.0-101.0); MEAN PLATELET VOLUME 10.5 fl (7.4-10.4); MONOCYTE # 0.6 10^3/ul (0.3-0.9); MONOCYTES % 9.1 % (0.0-11.0); NEUTROPHIL # 3.9 10^3/ul (1.6-7.5); NEUTROPHILS % 56.1 % (39.0-77.0); PLATELET COUNT 297 10^3/UL (140-415); RED BLOOD COUNT 4.46 10^6/ul (4.20-5.40); RED CELL DISTRIBUTION WIDTH 13.2 % (11.5-14.5)
[2019-05-28 22:16] LABS: ANION GAP 6 (5-13); BLOOD UREA NITROGEN 14 mg/dl (7-20); CALCIUM 9.4 mg/dl (8.4-10.2); CARBON DIOXIDE 27 mmol/L (21-31); CHLORIDE 105 mmol/L (97-110); CREATININE 0.65 mg/dl (0.44-1.00); Estimated GFR > 60 mL/min (>60); GLUCOSE 86 mg/dl (70-220); SODIUM 138 mmol/L (135-144)
[2019-05-28] MEDS: METOCLOPRAMIDE 10 MG INJ IV (23:16)
[2019-05-28] MEDS: DIPHENHYDRAMINE 50 MG INJ IV (23:16)
== END 2019-05-29 01:21 | disposition home or self-care (01) ==
LOC: E/R 05-29 01:21
DX: G40.909 Epilepsy, unspecified, not intractable, without status epilepticus (principal); J45.909 Unspecified asthma, uncomplicated; R51 Headache; R40.2142 Coma scale, eyes open, spontaneous, at arrival to emergency department; R40.2362 Coma scale, best motor response, obeys commands, at arrival to emergency department; R40.2252 Coma scale, best verbal response, oriented, at arrival to emergency department; Z91.040 Latex allergy status; Z91.010 Allergy to peanuts
CPT/HCPCS: 36415; 80048; 81025; 85025; 96374; 96375; 99284-25

== ENCOUNTER 2019-07-07 16:13 | Emergency (ER) | payer OTHER ==
[2019-07-07] MEDS: ONDANSETRON 4 MG INJ IV (17:51)
[2019-07-07] MEDS: morphine 4 MG/ML VIAL IV (17:51)
[2019-07-07] MEDS: SOD CHLORIDE 0.9% 1,000 ML IV (17:52)
[2019-07-07 18:00] LABS: ADD MAN DIFF? NO
[2019-07-07 18:05] LABS: WHITE BLOOD COUNT 8.4 10^3/ul (4.8-10.8)
[2019-07-07 18:05] LABS: BASOPHILS % 0.5 % (0.0-2.0); EOSINOPHILS # 0.2 10^3/ul (0.0-0.5); EOSINOPHILS % 1.8 % (0.0-7.0); HEMOGLOBIN 12.5 g/dl (12.0-16.0); LYMPHOCYTES # 2.3 10^3/ul (0.8-2.9); LYMPHOCYTES % 27.5 % (15.0-51.0); MEAN CORPUSCULAR HEMOGLOBIN 27.3 pg (29.0-33.0); MEAN CORPUSCULAR HGB CONC 32.1 g/dl (32.0-37.0); MEAN CORPUSCULAR VOLUME 85.2 fl (82.0-101.0); MEAN PLATELET VOLUME 10.1 fl (7.4-10.4); MONOCYTE # 0.6 10^3/ul (0.3-0.9); NEUTROPHIL # 5.3 10^3/ul (1.6-7.5); PLATELET COUNT 320 10^3/UL (140-415); RED BLOOD COUNT 4.58 10^6/ul (4.20-5.40)
[2019-07-07 18:23] LABS: ALANINE AMINOTRANSFERASE 12 IU/L (13-69); ALBUMIN 4.3 g/dl (3.3-4.9); ALBUMIN/GLOBULIN RATIO 1.26; ALKALINE PHOSPHATASE 76 IU/L (42-121); ANION GAP 8 (5-13); ASPARTATE AMINO TRANSFERASE 17 IU/L (15-46); BLOOD UREA NITROGEN 8 mg/dl (7-20); CALCIUM 9.5 mg/dl (8.4-10.2); CARBON DIOXIDE 25 mmol/L (21-31); CHLORIDE 105 mmol/L (97-110); CREATININE 0.51 mg/dl (0.44-1.00); Estimated GFR > 60 mL/min (>60); GLUCOSE 87 mg/dl (70-220); LIPASE 231 U/L (23-300); POTASSIUM 4.1 mmol/L (3.5-5.1); SODIUM 138 mmol/L (135-144); TOTAL PROTEIN 7.7 g/dl (6.1-8.1)
[2019-07-07 18:24] LABS: INR 0.96; PROTIME 12.9 Sec (11.9-14.9)
[2019-07-07 18:25] LABS: PARTIAL THROMBOPLASTIN TIME 30.8 Sec (23.0-35.0)
[2019-07-07] MEDS: FAMOTIDINE 20 MG INJ IV (18:41)
[2019-07-07] MEDS: KETOROLAC 30 MG INJ IV (18:47)
[2019-07-07 18:51] LABS: ADD UMIC YES; UR ASCORBIC ACID NEGATIVE (NEGATIVE); UR BILIRUBIN (Dip) NEGATIVE (NEGATIVE); UR BLOOD (Dip) 1+ mg/dL (NEGATIVE); UR CLARITY CLEAR (CLEAR); UR COLOR STRAW (YELLOW); UR GLUCOSE (Dip) NEGATIVE (NEGATIVE); UR KETONES (Dip) NEGATIVE (NEGATIVE); UR LEUKOCYTE ESTERASE (Dip) NEGATIVE Leu/ul (NEGATIVE); UR NITRITE (Dip) NEGATIVE (NEGATIVE); UR RBC 2 /HPF (0-5); UR SPECIFIC GRAVITY (Dip) 1.006 (1.003-1.030); UR TOTAL PROTEIN (Dip) NEGATIVE (NEGATIVE); UR UROBILINOGEN (Dip) NEGATIVE (NEGATIVE); UR WBC 0 /HPF (0-5)
== END 2019-07-07 19:39 | disposition home or self-care (01) ==
LOC: FTE 16:13
DX: R11.2 Nausea with vomiting, unspecified (principal); J45.909 Unspecified asthma, uncomplicated; Z91.010 Allergy to peanuts; Z91.040 Latex allergy status
CPT/HCPCS: 76705; 80053; 81001; 81025; 83690; 85025; 85610; 85730; 96374; 96375; 99285-25